=== PATIENT | female | born 1945 | race Caucasian/White ===

== ENCOUNTER 2016-03-17 13:59 | Emergency (ER) | payer MEDICARE, OTHER ==
[~2016-03-17] VITALS: Ht 154.9 cm; Wt 72.7 kg
[~2016-03-17 13:59] MED LIST: ASPI-351 PO; ATA16T PO; BECL8.7A6 IH; CHOL10008 PO; DILT240C97 PO; ESCI20TA PO; FLE10 PO; GABA300C PO; GLUC-181 PO; HCTZ25 PO; HYDR-4003 PO; LEVA15HF4 IH; OXYC-176 PO; POTA10TA23 PO; PRI20 PO; PROP225C6 PO; QVAR80 INH; ROB500 PO; SMV40T PO; TIOT18CA INH
[2016-03-17 14:02] VITALS: BP 140/84; PULSE 79; RESP 16; O2SAT 93
[2016-03-17 14:32] LABS: BASOPHILS % (AUTO) 0.6 % (0-3); MONOCYTES % (AUTO) 7.6 % (4-12); Mean Corpuscular Hemoglobin 29.9 pg (27.0-35.0); Mean Corpuscular Volume 90.2 fL (81-100); NEUTROPHILS % (AUTO) 58.5 % (40-74); Platelet Count 402 bil/L (150-400)
[2016-03-17 14:54] LABS: INR 0.93 ratio
--- NOTE | 2016-03-17 15:00 | DRSVH ---
PROCEDURE: X-RAY CHEST ONE VIEW, PORTABLE ([id number]) INDICATIONS: chest pain/hx afib TECHNIQUE: One view of the chest was acquired. COMPARISON: None. FINDINGS: Surgical changes and devices: Patient is status post left axillary evaristo dissection. Lungs and pleura: No pleural effusions or pneumothorax. Lungs are clear. Mediastinum: Mediastinal contours appear normal. Heart size is normal. Bones and chest wall: No suspicious bony lesions. Overlying soft tissues appear unremarkable. IMPRESSION: No acute cardiopulmonary findings. Dictated by: Concetta Vergara M.D. on 03/17/2016 at 14:59 Approved by: Concetta Vergara M.D. on 03/17/2016 at 14:59
--- NOTE | 2016-03-17 15:16 | ED.REPORT ---
HPI-General Illness Date of Service Mar 17, 2016 ED Provider: Gaurav Lujan MD A 70 year old female with a medical history including paroxysmal atrial fibrillation, occasional PVCs, hypertension, and hyperlipidemia presents to the ED with intermittent palpitations onset yesterday. Associated symptoms include continuous chest "heaviness," lightheadedness, and dizziness. The symptoms are not exacerbated with exertion. The patient also reports feeling increasingly depressed and anxious over the past week, which has worsened her baseline insomnia. She denies shortness of breath, diaphoresis, or suicidal ideation. The patient has had similar symptoms in the past associated with atrial fibrillation. The patient does not have Eliquis mentioned on her medication list , but she reports taking it along with Cardizem and Propafenone. Nursing Notes Stated Complaint: AFIB Chief Complaint: Dysrhythmia/Cardiac Nursing Notes Reviewed: Yes Allergies: Coded Allergies: Nitrate (Verified Adverse Reaction, Severe, severe drop in BP,+ headache, 10/05/13) nitroglycerin (Verified Adverse Reaction, Severe, severe drop in BP,+ headache, 10/05/13) Uncoded Allergies: ANTIHISTAMINE (Adverse Reaction, Severe, sedation > 24 hours, 12/20/08) Scheduled Aspirin-Expunged Drug, Do Not Renew! (Aspirin-Expunged Drug, Do Not Renew!) 325 Mg Tablet 325 MG PO DAILY Beclomethasone Dipropionate (Qvar) 8.7 Gm Aer.w.adap 2 PUFF IH BID Beclomethasone-Expunged Drug, Do Not Renew! (Bhtw-33-Hnbhvcki Drug, Do Not Renew !) 80 Mcg Puff 2 PUFFS INH BID Candesartan-Expunged Drug, Do Not Renew! (Candesartan-Expunged Drug, Do Not Renew!) 16 Mg Tablet 16 MG PO DAILY Cholecalciferol-Expunged Drug, Do Not Renew! (Vitamin D3-Expunged Drug, Do Not Renew!) 1,000 Unit Tab.chew 2,000 UNIT PO DAILY Cyclobenzaprine-Expunged Drug, Do Not Renew! (Flexeril-Expunged Drug, Do Not Renew!) 10 Mg Tablet 10 MG PO TIDP FOR MUSCLE SPASM Diltiazem-Expunged Drug, Do Not Renew! (Diltiazem CD-Expunged Drug, Do Not Renew !) 240 Mg Cap.er.24h 240 MG PO DAILY Escitalopram-Expunged Drug, Do Not Renew! (Lexapro-Expunged Drug, Do Not Renew! ) 20 Mg Tablet 20 MG PO DAILY Gabapentin-Expunged Drug, Do Not Renew! (Neurontin-Expunged Drug, Do Not Renew! ) 300 Mg Capsule 300-900 MG PO HSP FOR NERVE PAIN Gluc/Stan-MSM#1/C/Heriberto/Jonathan/Bor (Osteo Bi-Flex Caplet) 1 Each Tablet 1 EACH PO Need Sig Hydrochlorothiazide-Expunged, Do Not Renew! (Hydrochlorothiazide-Expunged, Do Not Renew!) 25 Mg Tablet 25 MG PO DAILY Levalbuterol (Xopenex HFA) 45 Mcg Puff 1-2 PUFF IH Q6HP FOR SHORTNESS OF BREATH Methocarbamol-Expunged Drug, Do Not Renew! (Robaxin-Expunged Drug, Do Not Renew! ) 500 Mg Tablet 500-1,000 MG PO QIDP Omeprazole-Expunged Drug, Do Not Renew! (Omeprazole-Expunged Drug, Do Not Renew! ) 20 Mg Capcr 20 MG PO DAILYAC Oxycodone/APAP-Expunged Drug, Do Not Renew! (Percocet 5/325-Expunged Drug, Do Not Renew!) 1 Each Tablet 1 TAB PO Q6HP Potassium Chl-Expunged Drug, Do Not Renew! (E-Cts-Ydhwqnzg Drug, Do Not Renew!) 10 Meq Tab.prt.sr 10 MEQ PO BID Propafenone ER (Propafenone ER) 225 Mg Cap.er.12h 225 MG PO Q12 Simvastatin-Expunged Drug, Choose New Med! (Simvastatin-Expunged Drug, Choose New Med!) 40 Mg Tablet 40 MG PO HS Tiotropium Br-Expunged Drug, Do Not Renew! (Spiriva-Expunged Drug, Do Not Renew! ) 18 Mcg/Puff Pack 18 MCG INH DAILY INHALE 1 CAPSULE Trazodone (Trazodone) 50 Mg Tablet 50 MG PO HS Scheduled PRN Hydrocodone-Acetaminophen 5-325 mg (Hydrocodone-Acetaminophen 5-325 mg) 1 Each Tablet 1 EACH PO Q8 PRN PRN For Pain General Time Seen by MD: 15:15 Chief Complaint Other (Palpitations) Hx Obtained From: Patient Arrived By: Walk-in Sudden in Onset?: Yes Onset Occurred: Yesterday Symptom Duration: Intermittent Location: : Chest Quality: Heaviness Severity: Current: Moderate Severity: Maximum: Moderate Associated with: Reports: Chest pain, Dizziness, Denies: Diaphoresis, Shortness of breath Pertinent Negative: Exacerbated by nothing, Relieved by nothing Context Related History: Reports COPD Recent Healthcare: No recent doctor visit Similar Sx Previous: Yes Past Medical History Past Medical History Notes: Negative stress test 2009 and 2004 Past Medical History Paroxysmal atrial fibrillation Occasional PVCs Pre-diabetic Hypertension COPD Sleep apnea on CPAP Breast Cancer Hyperlipidemia Past Surgical History Left mastectomy with trans flap reconstruction in 1997 Hysterectomy 2009 Bilateral lumbosacral decompression with lateral recess decompression of the L4 and L5 nerve roots 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 Family History No heart disease Smoking History Former Smoker Social History Other Social History: Good social support, Ambulatory Status Independent Review of Systems Full Review of Systems Constitutional: Denies: Fever Respiratory: Denies: Shortness of breath Cardiovascular: Reports: Chest pain ("heaviness"), Palpitations (Intermittent) Skin: Denies Diaphoresis Neurologic: Reports: Dizziness, Lightheaded Psychiatric: Reports: Anxiety, Depression, Insomnia, Denies: Suicidal ideation Complete sys rev & neg: except as marked. Physical Exam Vital Signs Vital Signs Date Time Temp Pulse Resp B/P Pulse Ox O2 Delivery O2 Flow Rate FiO2 03/17/16 18:31 36.4 69 16 116/71 93 Room Air 03/17/16 14:02 36.6 79 16 140/84 93 Initial VS: Reviewed Head / Eyes: Atraumatic, Normocephalic ENT: Conjunctiva normal, No scleral icterus Skin: Warm, Dry Neurologic: Alert, Oriented, Nonfocal General/Constitutional: Awake, Alert, No acute distress Respiratory / Chest: Breath sounds NL, Breath sounds = bilat, No respiratory distress Cardiovascular: Heart rate NL, Regular rhythm, Heart sounds NL, No gallop, No murmurs, No rubs Psychiatric: Affect NL, Not suicidal, No hallucinations, Judgment/insight NL Interpretation & Diagnostics Interpretation & Diagnostics: Lab Results Interpretation Result Diagram: 03/17/16 1420 03/17/16 1420 Test 03/17/16 14:20 03/17/16 16:58 White Blood Count 9.0th/mm3 (3.8-10.1) Red Blood Count 4.61mil/mm3 (3.90-5.20) Hemoglobin 13.8g/dL (12.0-15.6) Hematocrit 41.6% (35.0-46.0) Mean Corpuscular Volume 90.2fL (81-100) Mean Corpuscular Hemoglobin 29.9pg (27.0-35.0) Mean Corpuscular Hemoglobin Concent 33.2% (32.0-37.0) Red Cell Distribution Width 13.2% (12.3-15.4) Platelet Count 402bil/L (150-400) Neutrophils (%) (Auto) 58.5% (40-74) Lymphocytes (%) (Auto) 30.0% (14-46) Monocytes (%) (Auto) 7.6% (4-12) Eosinophils (%) (Auto) 3.0% (0-5) Basophils (%) (Auto) 0.6% (0-3) Prothrombin Time 9.9sec (8.1-12.5) Prothromb Time International Ratio 0.93ratio Sodium Level 139mEq/L (134-144) Potassium Level 4.3mEq/L (3.5-5.2) Chloride Level 101mEq/L (97-108) Carbon Dioxide Level 24mmol/L (18-29) Blood Urea Nitrogen 15mg/dL (8-27) Creatinine 0.86mg/dL (0.57-1.00) Estimat Glomerular Filtration Rate 94mL/min (>59) Glucose Level 96mg/dL (60-99) Calcium Level 9.5mg/dL (8.5-10.1) Magnesium Level 2.1mg/dL (1.6-2.6) Total Bilirubin 0.3mg/dL (0.0-1.2) Aspartate Amino Transf (AST/SGOT) 20U/L (0-50) Alanine Aminotransferase (ALT/SGPT) 19U/L (0-32) Alkaline Phosphatase 108U/L (25-165) Total Protein 7.3g/dL (6.4-8.4) Albumin 4.3g/dL (3.4-5.0) Hold Jasmine Top Tube Received (Received) Troponin T < 0.010ug/L (0.0-0.011) ECG Interpretation ECG Interpretation: Sinus rhythm rate 70 Probable anteroseptal infarct, old Nonspecific ST changes Nothing acute Appears similar to baseline except occasional PVCs at baseline Time: 14:13 Interpreted by: ED physician X-Ray Chest Interpretation Chest Xray Interpretation: IMPRESSION: No acute cardiopulmonary findings. Dictated by: Concetta Vergara M.D. on 03/17/2016 at 14:59 View: Portable, 1 view Interpretation / Wet Read by: Interpret - Radiologist Re-Eval/Medical Decision Source of Hx: Old records Time of Eval: 16:20 Patient Status: Condition improved, Pain improved Re-Evaluation/Progress Note: The patient's chest pressure has reduced but is still present. Discussed with patient x-ray, lab, and ECG results, diagnosis, and plan for repeat labs and subsequent discharge if normal. Follow-up and return to the ER instructions given. Patient agrees with plan for care and all questions were addressed. Counseled Regarding: Diagnosis, Lab results, Need for follow-up, When/why to return to ED Discharge & Departure Primary Impression: Palpitations Additional Impression: Insomnia Insomnia type: unspecified Qualified Code: G47.00 - Insomnia, unspecified Disposition: Home Discharge Condition All VS Reviewed: Yes Condition: Stable Additional Instructions: Emergency department evaluation today included interview, examination, ECG, labs chest x-ray and review of past records. Atrial fibrillation is not observed. Otherwise we do not find any evidence of a serious heart problem or any other chest illness. Reports of increased stress and insomnia may be contributing. Continue previous home medications, for insomnia and trazodone 50 mg at bedtime. Follow-up with primary care soon. Return to emergency department for increasing shortness of breath fevers or fainting. Referrals: [facility] (PCP) Alla Rand MD Attestation Portions of this note were transcribed by Gaviota Mckeon. I, Dr. Lujan, personally performed the history, physical exam, and medical decision-making; I reviewed and confirmed the accuracy of the information in the transcribed note. Signed by: Zenaida Post, 03/17/2016, 19:00 copies to: [facility]; Alla Rand MD, Donald L MD Mar 17, 2016 15:16 GAVIOTA MCKEON Mar 17, 2016 15:36
[2016-03-17 15:20] LABS: TROPONIN T < 0.010 ug/L (0.0-0.011)
[2016-03-17] MEDS ORDERED: TRAZ-115 PO (18:16)
[2016-03-17 18:31] VITALS: BP 116/71; PULSE 69; RESP 16; O2SAT 93
== END 2016-03-17 18:32 | disposition home or self-care (01) ==
LOC: SED 13:59
DX: R00.2 Palpitations (principal); G47.00 Insomnia, unspecified; R07.89 Other chest pain; I11.9 Hypertensive heart disease without heart failure; I48.0 Paroxysmal atrial fibrillation; J44.9 Chronic obstructive pulmonary disease, unspecified; E78.5 Hyperlipidemia, unspecified; Z87.891 Personal history of nicotine dependence; Z88.8 Allergy status to other drugs, medicaments and biological substances